=== PATIENT | female | born 1935 | race Caucasian/White ===

== ENCOUNTER 2017-01-21 15:53 | Emergency (ER) | payer MEDICARE, OTHER ==
[~2017-01-21] VITALS: Ht 177.8 cm; Wt 72.6 kg
[2017-01-21 16:17] VITALS: BP 152/92
[2017-01-21 17:03] LABS: Basophils # (auto) 0.1 uL; Basophils % (auto) 0.8 % (0.0-2.0); Eosinophils # (auto) 0.1 uL; Eosinophils % (auto) 0.9 % (0.0-7.0); Hematocrit 46.9 % (36.0-46.0); Hemoglobin 16.3 g/dL (12.2-16.2); Lymphocytes # (auto) 1.5 uL; Lymphocytes % (auto) 14.2 % (10.0-50.0); Mean Corpuscular Hemoglobin 30.4 pg (28.0-32.0); Mean Corpuscular Hgb Conc. 34.7 g/dL (32.0-36.0); Mean Corpuscular Volume 87.7 fL (80.0-100.0); Mean Platelet Volume 8.8 fL (7.4-10.4); Monocytes # (auto) 0.6 uL; Neutrophils # (auto) 8.2 uL; Neutrophils % (auto) 78.1 % (37.0-80.0); Platelet Count (auto) 277 10^3/uL (140-450); White Blood Cell 10.5 10^3/uL (4.4-10.8)
[2017-01-21 17:11] LABS: Albumin 4.2 g/dL (3.4-5.0); BUN/Creatinine Ratio 17.8; Calcium 9.2 mg/dL (8.5-10.1); Magnesium 2.2 mg/dL (1.6-2.6); Potassium 3.3 mmol/L (3.5-5.1)
[2017-01-21 17:14] LABS: Bilirubin, Total 1.5 mg/dL (0.2-1.0); Total Protein 7.6 g/dL (6.4-8.2)
== END 2017-01-21 21:46 | disposition left against medical advice (07) ==
LOC: ER 16:02
DX: R11.2 Nausea with vomiting, unspecified (principal); Z53.21 Procedure and treatment not carried out due to patient leaving prior to being seen by health care provider
CPT/HCPCS: 36415; 80053; 83735; 85025

== ENCOUNTER → 2019-04-13 | Day surgery (SDC) | payer MEDICARE, OTHER ==
[~2019-04-13] VITALS: Ht 177.8 cm; Wt 71.7 kg
[~2019-04-13] MED LIST: AMLO5TAB13 PO; BUPIVACAINE 0.25% INJ 50ML VIAL ONE; CLON0.1T PO; HYDR-4683 PO; LIDOCAINE 1% HCL (LOCAL ANESTH.) INJ 20ML MDV ONE; MIDAZOLAM HCL 1MG/1ML-2 ML VIAL ONE; ONDANSETRON HCL 4 MG/2 ML VIAL ONE; PAR20T PO; POTA10TA51 PO; PROPOFOL 10 MG/ML 20 ML IV ONE; SODIUM CHLORIDE LOCK 10 ML ONE; ceFAZolin 1GM/50ML 50 ML IV ONE; fentaNYL CITRATE 100 MCG/2 ML VL ONE
[2019-04-13 08:28] VITALS: BP 164/90
== END | disposition home or self-care (01) ==
LOC: SUR 06:16
PROVIDERS: ATTEND Orthopaedic Surgery Adult Reconstructive Orthopaedic Surgery
DX: G56.02 Carpal tunnel syndrome, left upper limb (principal); G56.22 Lesion of ulnar nerve, left upper limb; M48.061 Spinal stenosis, lumbar region without neurogenic claudication; I12.9 Hypertensive chronic kidney disease with stage 1 through stage 4 chronic kidney disease, or unspecified chronic kidney disease; N18.2 Chronic kidney disease, stage 2 (mild); Z91.041 Radiographic dye allergy status; Z88.8 Allergy status to other drugs, medicaments and biological substances; Z88.2 Allergy status to sulfonamides; Z91.040 Latex allergy status; Z91.09 Other allergy status, other than to drugs and biological substances; Z79.899 Other long term (current) drug therapy; Z82.61 Family history of arthritis; Z96.643 Presence of artificial hip joint, bilateral
CPT/HCPCS: 29848; J0690; J2001; J2250; J2405; J2704; J3010; J3490